=== PATIENT | female | born 1980 | race Caucasian/White ===

== ENCOUNTER 2019-02-27 07:18 | Emergency (ER) | payer OTHER ==
[2019-02-27 07:34] VITALS: BP 146/97
[2019-02-27 07:54] LABS: Influenza A Molecular NEGATIVE (Negative); Influenza B Molecular NEGATIVE (Negative)
--- NOTE | 2019-02-27 08:06 | UC ---
Respiratory Complaint HPI - HPI Summary HPI Summary: URI symptoms for about 5 days. Now with significant cough that is disruptive. She has had chills and sweats. - History of Current Complaint Chief Complaint: UCGeneralIllness Stated Complaint: COUGH SORE THROAT VOMITING Time Seen by Provider: 02/27/19 07:42 Hx Obtained From: Patient Hx Last Menstrual Period: 02/19/19 ?: No Onset/Duration: Gradual Onset Timing: Constant Severity Initially: Mild Severity Currently: Moderate Pain Intensity: 0 Character: Cough: Productive Aggravating Factors: Nothing Alleviating Factors: Nothing Associated Signs And Symptoms: Positive: Fever, Chills, URI, Nasal Congestion - Allergies/Home Medications Allergies/Adverse Reactions: Allergies Allergy/AdvReac Type Severity Reaction Status Date / Time No Known Allergies Allergy Verified 02/27/19 07:25 Home Medications: Home Medications Dm/PE/Acetaminophen/Chlorphenr [Cold Multi-Symptom Day-Night] 1 each PO ONCE 12/17 [History Confirmed 02/27/19] FLUoxetine CAP* [PROzac CAP*] 40 mg PO BEDTIME 02/27/19 [History Confirmed 02/27] Norgestimate-Ethinyl Estradiol [[place]-Linyah] 1 tab PO DAILY 02/27/19 [History Confirmed 02/27/19] PMH/Surg Hx/FS Hx/Imm Hx Previously Healthy: Yes - Surgical History Surgical History: None - Social History Alcohol Use: None Substance Use Type: None Smoking Status (MU): Never Smoked Tobacco Review of Systems All Other Systems Reviewed And Are Negative: Yes Constitutional: Positive: Fever, Chills, Fatigue Skin: Positive: Negative Eyes: Positive: Negative ENT: Positive: Sore Throat, Nasal Discharge Respiratory: Positive: Cough Cardiovascular: Positive: Negative Gastrointestinal: Positive: Negative Is Patient Immunocompromised?: No Physical Exam - Summary Physical Exam Summary: She was non-toxic in appearance with stable vitals. Triage Information Reviewed: Yes Appearance: Well-Appearing Vital Signs: Initial Vital Signs Temp 97.8 F 02/27/19 07:27 Pulse 98 02/27/19 07:27 Resp 22 02/27/19 07:27 BP 146/97 02/27/19 07:27 Pulse Ox 98 02/27/19 07:27 Vital Signs Reviewed: Yes Eye Exam: Normal ENT: Positive: Pharyngeal erythema, Nasal congestion Dental Exam: Normal Neck exam: Normal Respiratory Exam: Normal Cardiovascular Exam: Normal Abdominal Exam: Normal Musculoskeletal Exam: Normal Neurological Exam: Normal Respiratory Course/Dx - Course Course Of Treatment: Ms. Magdaleno presents with a viral URI which I will treat symptomatically. - Differential Dx/Diagnosis Provider Diagnosis: URI, acute Discharge - Sign-Out/Discharge Documenting (check all that apply): Patient Departure All imaging exams completed and their final reports reviewed: No Studies - Discharge Plan Condition: Stable Disposition: HOME Patient Education Materials: Upper Respiratory Infection (ED) Forms: *Work Release Referrals: Cirilo Silva MD [Primary Care Provider] - - Billing Disposition and Condition Condition: STABLE Disposition: Home
== END 2019-02-27 08:28 | disposition home or self-care (01) ==
LOC: UCEAST 07:18
DX: J06.9 Acute upper respiratory infection, unspecified (principal)
CPT/HCPCS: 99212; G0463

== ENCOUNTER 2020-01-26 07:50 | Emergency (ER) | payer OTHER ==
[2020-01-26 08:09] VITALS: BP 129/95
--- NOTE | 2020-01-26 08:45 | UC ---
Abdominal Pain Female HPI - HPI Summary HPI Summary: PATIENT COMPLAINS OF A COUPLE WEEKS OF MID UPPER BACK PAIN WORSE AT NIGHT TIME. NO CHEST PAIN, SHORTNESS OF BREATH, FEVER. NO COUGH OR URI SYMPTOMS. 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 IS ALSO COMPLAINING OF LOWER ABDOMINAL PAIN THAT HAS BEEN WORSE OVER THE PAST 2 DAYS ASSOCIATED WITH NAUSEA AND URINARY FREQUENCY. SHE DENIES DYSURIA OR HEMATURIA. STATES SHE HAS LOOSE STOOLS AT HER BASELINE AND THERE IS NO CHANGE IN THIS - IN FACT SHE HAS BEEN FEELING MORE CONSTIPATED THAN NORMAL. DENIES ANY CHANCE OF . NO SEXUAL ACTIVITY IN OVER A YEAR. - History of Current Complaint Chief Complaint: UCAbdominalPain Stated Complaint: BACK PAIN ABDOMINAL PAIN Time Seen by Provider: 01/26/20 07:52 Hx Obtained From: Patient Hx Last Menstrual Period: 02/19/19 Onset/Duration: Gradual Onset, Lasting Days, Still Present Timing: Constant Severity Initially: Moderate Severity Currently: Moderate Pain Intensity: 5 Pain Scale Used: 0-10 Numeric Location: Other - LOWER ABDOMEN Radiates: No Character: Sharp Aggravating Factor(s): Other: - WORSE AT NIGHT Alleviating Factor(s): OTC Analgesics - IBUPROFEN Associated Signs and Symptoms: Positive: Back Pain, Constipation, Urinary Symptoms - FREQUENCY, Nausea. Negative: Fever, Blood in Stool, Vaginal Discharge, Vomiting Allergies/Adverse Reactions: Allergies Allergy/AdvReac Type Severity Reaction Status Date / Time No Known Allergies Allergy Verified 01/26/20 08:05 Home Medications: Home Medications FLUoxetine CAP* [Prozac CAP*] 40 mg PO BEDTIME 02/27/19 [History Confirmed 01/26] Norgestimate-Ethinyl Estradiol [[place]-Linyah 28 Tablet] 1 tab PO DAILY 02/27/19 [ History Confirmed 01/26/20] Sulfamethox/Trimethoprim DS* [Bactrim DS 800/160 TAB*] 1 tab PO BID #10 tab [Rx] PMH/Surg Hx/FS Hx/Imm Hx Previously Healthy: Yes - Surgical History Surgical History: None - Family History Known Family History: Positive: Non-Contributory - Social History Alcohol Use: None Substance Use Type: None Smoking Status (MU): Never Smoked Tobacco Review of Systems All Other Systems Reviewed And Are Negative: Yes Constitutional: Positive: Negative Respiratory: Positive: Negative Cardiovascular: Positive: Negative Gastrointestinal: Positive: Nausea. Negative: Vomiting Genitourinary: Positive: Frequency. Negative: Dysuria Physical Exam Triage Information Reviewed: Yes Appearance: Well-Appearing, No Pain Distress, Well-Nourished Vital Signs: Initial Vital Signs Temp 97.6 F 01/26/20 08:05 Pulse 72 01/26/20 08:05 Resp 18 01/26/20 08:05 BP 129/95 01/26/20 08:05 Pulse Ox 100 01/26/20 08:05 Laboratory Tests 01/26/20 08:13 POC Urine Color Yellow POC Urine Clarity Clear POC Urine pH 6.0 POC Ur Specif Exline <= 1.005 L POC Urine Protein Negative POC Ur Glucose (UA) Negative POC Urine Ketones Negative POC Urine Blood Trace-intact A POC Urine Nitrite Negative POC Urine Bilirubin Negative POC Urine Urobilinogen 0.2 POC U Leukocyte Esteras 1+ A Vital Signs Reviewed: Yes Eyes: Positive: Conjunctiva Clear ENT: Positive: Hearing grossly normal Neck: Positive: Supple Respiratory Exam: Normal Cardiovascular Exam: Normal Abdomen Description: Positive: Soft, Other: - MILDLY TENDER DIFFUSELY. NO REBOUND OR RIGIDITY. Negative: CVA Tenderness (R), CVA Tenderness (L), Distended, Guarding Bowel Sounds: Positive: Present Musculoskeletal: Positive: No Edema Neurological: Positive: Alert Psychological: Positive: Age Appropriate Behavior Skin: Negative: Rashes Abd Pain Female Course/Dx - Course Course Of Treatment: URINE DIP SUGGESTIVE OF UTI. GIVEN PATIENT'S SYMPTOMS OF LOWER ABDOMINAL PAIN NAUSEA AND URINARY FREQUENCY WILL COVER WITH ANTIBIOTICS TWICE DAILY FOR 5 DAYS. SPECIMEN SENT FOR CX. DISCUSSED CT SCAN TO EVALUATE FOR KIDNEY STONE HOWEVER PATIENT DECLINES AT THIS TIME. STATES SHE WILL FOLLOW-UP IF NEEDED. 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 ADVISED REST, HEAT, MASSAGE, OTC MEDICATIONS NEEDED. PT DECLINES IMAGING TODAY. PATIENT WILL FOLLOW UP WITH HER PCP IN ONE TO 2 WEEKS IF HER SYMPTOMS ARE NOT RESOLVING WITH THE ABOVE TREATMENT. - Differential Dx/Diagnosis Provider Diagnosis: UTI (urinary tract infection), Upper back pain Discharge ED - Sign-Out/Discharge Documenting (check all that apply): Patient Departure All imaging exams completed and their final reports reviewed: No Studies - Discharge Plan Condition: Stable Disposition: HOME Prescriptions: Sulfamethox/Trimethoprim DS* [Bactrim DS 800/160 TAB*] 1 tab PO BID #10 tab Patient Education Materials: Urinary Tract Infection in Women (ED) Forms: *Work Release Referrals: Cirilo Silva MD [Primary Care Provider] - 2 Weeks Additional Instructions: URINE TEST TODAY SUGGESTIVE OF URINARY TRACT INFECTION. WILL GO AHEAD AND COVER YOU WITH ANTIBIOTICS TWICE DAILY FOR 5 DAYS. STAY WELL HYDRATED. URINE SPECIMEN HAS BEEN SENT FOR CULTURE AND WE WILL CALL YOU IF YOUR MEDICATION NEEDS TO BE CHANGED. UNCLEAR ETIOLOGY OF YOUR UPPER BACK PAIN. IT MAY BE RELATED TO YOUR PHYSICALLY DEMANDING JOB. REST, HEAT, MASSAGE. OTC MEDICATIONS NEEDED. FOLLOW-UP WITH YOUR PCP IN ONE TO 2 WEEKS FOR REEVALUATION IF YOUR SYMPTOMS ARE PERSISTENT. - Billing Disposition and Condition Condition: STABLE Disposition: Home
== END 2020-01-26 08:46 | disposition home or self-care (01) ==
LOC: UCEAST 07:50
DX: N39.0 Urinary tract infection, site not specified (principal); M54.89 Other dorsalgia; R11.0 Nausea
CPT/HCPCS: 81003; 87086; 99212; G0463

== ENCOUNTER 2020-02-22 10:38 | Emergency (ER) | payer OTHER ==
--- NOTE | 2020-02-22 10:50 | UC ---
Complaint Female HPI - HPI Summary HPI Summary: 39 yo female presents with lower abdominal pain and hematuria. She was seen about a month ago for similar lower abdominal pain with nausea and urinary frequency. Her UA had 1+ leuks and she was treated with Bactrim for a UTI. Urine culture had no growth. She saw her PCP a few days later as she was not improving and was diagnosed with a kidney stone without imaging. Eventually pain subsided, but this morning pain returned and noticed blood in her urine. Pain today is mostly left abdomen and left flank and rates 5/10. Urine is pink in color altering her to "blood in urine". She has never had a kidney stone before. LMP was 02/01/20. Denies abdominal pain, n/v/d/c, vaginal bleeding or discharge, dysuria, fever. - History Of Current Complaint Stated Complaint: URINARY COMPLAINT Time Seen by Provider: 02/22/20 10:50 Hx Obtained From: Patient Hx Last Menstrual Period: 02/01/20 ?: No Severity Initially: Moderate Severity Currently: Moderate Pain Intensity: 5 Pain Scale Used: 0-10 Numeric - Allergies/Home Medications Allergies/Adverse Reactions: Allergies Allergy/AdvReac Type Severity Reaction Status Date / Time No Known Allergies Allergy Verified 01/26/20 08:05 Home Medications: Home Medications FLUoxetine CAP* [Prozac CAP*] 40 mg PO BEDTIME 02/27/19 [History Confirmed 02/21] Norgestimate-Ethinyl Estradiol [[place]ambers-Linyah 28 Tablet] 1 tab PO DAILY 02/27/19 [ History Confirmed 02/22/20] PMH/Surg Hx/FS Hx/Imm Hx Psychological History: Anxiety, Depression - Surgical History Surgical History: None - Family History Known Family History: Positive: None - Social History Lives: With Family Alcohol Use: None Substance Use Type: None Smoking Status (MU): Never Smoked Tobacco Review of Systems All Other Systems Reviewed And Are Negative: No Constitutional: Positive: Negative Skin: Positive: Negative Respiratory: Positive: Negative Cardiovascular: Positive: Negative Gastrointestinal: Positive: Negative Genitourinary: Positive: Dysuria Neurological/Mental Status: Positive: Negative Psychological: Positive: Negative Physical Exam - Summary Physical Exam Summary: GENERAL: NAD. WDWN. No pain distress. SKIN: No rashes, sores, lesions, or open wounds. NECK: Supple. Nontender. No lymphadenopathy. CHEST: CTAB. No r/r/w. No accessory muscle use. Breathing comfortably and in no distress. CV: RRR. Pulses intact. Cap refill <2seconds ABDOMEN: Soft. NTTP. No distention or guarding. No CVA tenderness. Bowel sounds present NEURO: Alert. PSYCH: Age appropriate behavior. Triage Information Reviewed: Yes Vital Signs: Vital Signs: Temp Pulse Resp BP Pulse Ox 97.7 F 70 18 132/75 99 02/22/20 11:08 02/22/20 11:08 02/22/20 11:08 02/22/20 11:08 02/22/20 11:08 Laboratory Tests 02/22/20 11:09 POC Urine Color Yellow POC Urine Clarity Clear POC Urine pH 6.0 POC Ur Specif Ariton 1.010 POC Urine Protein Negative POC Ur Glucose (UA) Negative POC Urine Ketones Negative POC Urine Blood 1+ A POC Urine Nitrite Negative POC Urine Bilirubin Negative POC Urine Urobilinogen 0.2 POC U Leukocyte Esteras Negative Vital Signs Reviewed: Yes Diagnostics - Radiology CT ab/pelv Radiology Interpretation Completed By: Radiologist Summary of Radiographic Findings: FINDINGS: Evaluation is limited due to the lack of intravenous contrast. This limits evaluation of the solid organs and vasculature. LUNG BASES: The lung bases are clear. LIVER: The liver is normal in shape, size, contour, and attenuation. BILE DUCTS: There is no intrahepatic or extrahepatic biliary dilatation. GALLBLADDER: The gallbladder is normal, without pericholecystic inflammatory change. PANCREAS: The pancreas is normal, without mass or ductal dilatation. SPLEEN: Normal in size and appearance. UPPER GI TRACT: Evaluation of the gastrointestinal tract is limited by incomplete gastric distention. The upper GI tract is unremarkable. SMALL BOWEL AND MESENTERY: The small bowel is normal in contour, course, and caliber. There is no obstruction or dilatation. COLON: The colon is normal in contour, course, caliber. There is no pericolonic inflammatory change. There is a tubular, vermiform, hollow viscus that is blind ending, and originates from the cecum, consistent with a normal appendix. There is no periappendiceal inflammatory change. This is best seen on coronal image 67. ADRENALS: Normal bilaterally. KIDNEYS: The kidneys are normal in shape, size, contour, and axis. There is no hydronephrosis or nephrolithiasis. BLADDER: The bladder is smooth in contour. PELVIC ORGANS: The uterus and adnexa are grossly normal for technique. AORTA: The aorta is normal. IVC: Unremarkable LYMPH NODES: There is no lymphadenopathy by size criteria. ABDOMINAL WALL: There is no evidence for abdominal wall hernia. BONES AND SOFT TISSUES: Unremarkable OTHER: None IMPRESSION: NO APPRECIABLE HYDRONEPHROSIS OR NEPHROLITHIASIS. Complaint Female Dx - Course Course Of Treatment: UA with 1+ blood. CT as above. Discussed results with pt. Will refer her to Urology for further evaluation of her hematuria. - Differential Dx/Diagnosis Differential Diagnosis/HQI/PQRI: , Renal Colic, Ureteral Stone, Urinary Tract Infection Provider Diagnosis: Hematuria Discharge ED - Sign-Out/Discharge Documenting (check all that apply): Patient Departure All imaging exams completed and their final reports reviewed: Yes - Discharge Plan Condition: Stable Disposition: HOME Patient Education Materials: Hematuria (ED) Referrals: Cirilo Silva MD [Primary Care Provider] - Enmanuel Tyler MD [Medical Doctor] - As Soon As Possible Additional Instructions: If you develop a fever, shortness of breath, chest pain, new or worsening symptoms - please call your PCP or go to the ED immediately. The CT scan was normal today and did not show any evidence of kidney stone. I recommend that you call a Urologist to schedule an appointment for further evaluation of the blood in your urine. - Billing Disposition and Condition Condition: STABLE Disposition: Home - Attestation Statements Provider Attestation: This patient was not seen by me. I was available for consult. Chart reviewed. ZEESHAN
--- OUTSIDE RECORDS SUMMARY | 2020-02-22 10:54 | XMS REPORT | Continuity of Care Document ---
:1980 External Reference #:[id number] Author Name Cirilo Silva MD Address [address] [facility] [place] [address] Care Team Providers Name Role Phone Cirilo Silva MD - Family Care Team Information Manager Trainee Medicine Problems Description No Information Available Social History Type Date Description Comments Sex Unknown Tobacco Use Start: Unknown Patient has never smoked Smoking Status Reviewed: 01/12/19 Patient has never smoked Allergies, Adverse Reactions, Alerts Description No Known Drug Allergies Medications Active Medications SIG Qnty Indications Ordering Provider Date Tamsulosin HCL 1 by mouth every 14caps N20.2 Cirilo T. 01/27/2020 0.4mg day MD Shira Capsules Hydrocodone-Acetaminop 1 every 6 hours 28tabs N20.2 Cirilo T. 01/27/2020 hen as needed MD Shira 5-325mg Tablets Fluoxetine HCL 2 by mouth every 60caps F32.1 Cirilo T. 02/06/2019 20mg day MD Shira Capsules Multivitamin Adult 1 by mouth every Unknown day Tablets Previfem 1 by mouth every Unknown 0.25-35mg-mcg day Tablets Sulfamethoxazole/Trime 1 by mouth twice Unknown thoprim DS a day 800-160mg Tablets Medications Administered in Office Medication SIG Qnty Indications Ordering Provider Date Brief Emotional/Behav June Benton NP 02/01/2018 Assessment W/ Scoring Doc Per Standard Inst Injection Brief Emotional/Behav Cirilo Silva MD 12/27/2017 Assessment W/ Scoring Doc Per Standard Inst Injection Brief Emotional/Behav Cirilo Silva MD 12/13/2017 Assessment W/ Scoring Doc Per Standard Inst Injection Immunizations CPT Code Status Date Vaccine Lot # [id number] Given 01/12/2019 Influenza Virus Vaccine, Recombinant Dna, [id number] [place] [id number] Given 12/13/2017 Influenza vac quadrivalent preservative free 6 [id number] months and up Vital Signs Date Vital Result Comment 01/27/2020 9:27am BP Systolic 122 mmHg BP Diastolic 92 mmHg Heart Rate 78 /min Body Temperature 97.5 F Height 62 inches 5'2" Weight 176.00 lb BMI (Body Mass Index) 32.2 kg/m2 01/12/2019 4:14pm BP Systolic 110 mmHg BP Diastolic 80 mmHg Heart Rate 80 /min Body Temperature 98.7 F Respiratory Rate 17 /min Height 62 inches 5'2" Weight 180.12 lb BMI (Body Mass Index) 32.9 kg/m2 Right Visual Acuity Distance 20/20 w/ corrected lenses Left Visual Acuity Distance 20/20 w/ corrected lenses Results Test Acquired Date Facility Test Result H/L Range Note Poc Urinal[place] [facility] [place] Glucose, Urine Negative Negative Poc Bilirubin, Urine Negative Negative Poc Ketone, Urine Negative Negative Poc Specific [place], Urine <= 1.005 Low 1.010-1.030 Poc Blood, Urine Trace-intact Abnormal Negative 1 Poc pH, Urine 6.0 Normal 5-9 Poc Protein, Urine Negative Negative Poc Urobilinogen, Urine 0.2 Negative Poc Nitrite, Urine Negative Negative Poc Leukocytes, Urine 1+ Abnormal Negative Poc Color, Urine Yellow Poc Clarity, Urine Clear Urine Culture And 01[place]26/[place] [facility] [place] SEE RESULT BELOW 2, 3 Sensitivities 1 Probate Lawyer: [id number] SEE RESULT BELOW Name: NIKITA MAGDALENO : [address]: Matilda Ross MD Acct: [id number] Unit: [id number] AGE: 39 Location: [facility] Re01/26/20 SEX: F Status: DEP ER SPEC: [id number] SUSAN: 01/26/[address]: Matilda Ross MD REQ: [id number] RECD: 01/26/20 STATUS: ROXI [facility] DR: Cirilo Silva MD _ SOURCE: URINE [facility]: ORDERED: Urine Culture COMMENTS: [id number] Procedure Result Reported Site Urine Culture Final 01/27/20- 1144 ML No Growth (<1,000 CFU/mL) * ML - Main Lab . END OF REPORT DEPARTMENT OF PATHOLOGY, [address] [place] [address] Brent Lu M.D. Director [facility] # [id number] Procedures Description No Information Available Medical Devices Description No Information Available Encounters Description No Information Available Assessments Date Code Description Provider 01/27/2020 N20.2 Calculus of kidney with calculus of ureter Cirilo Silva MD Plan of Treatment 01/27/2020 - Cirilo Silva MDN20.2 Calculus of kidney with calculus of ureterNew Medication:Tamsulosin HCL 0.4 mg - 1 by mouth every dayHydrocodone- Acetaminophen 5-325 mg - 1 every 6 hours as neededComments:Let me know early in the week if you don't improve - we'll get the CT .AllComments:Medication Management Patient Understands medications she's taking? Yes No Are there Barriers to Adherence? Yes No Has the patient been asked about herbal supplements and therapies, and OTC meds? Yes No Functional Status Description No Information Available Mental Status Description No Information Available Referrals Description No Information Available
[2020-02-22 11:15] VITALS: BP 132/75
== END 2020-02-22 11:59 | disposition home or self-care (01) ==
LOC: UCEAST 10:38
DX: R31.9 Hematuria, unspecified (principal); R10.30 Lower abdominal pain, unspecified; R35.0 Frequency of micturition; R11.0 Nausea; F41.9 Anxiety disorder, unspecified; F32.9 Major depressive disorder, single episode, unspecified; Z79.899 Other long term (current) drug therapy
CPT/HCPCS: 74176; 81003; 99211; G0463